=== PATIENT | female | born 1955 | race Caucasian/White ===

== ENCOUNTER 2022-01-18 03:59 | Inpatient (IN) | payer OTHER ==
[2022-01-18 04:09] VITALS: BMI 23.6
[2022-01-18] MEDS ORDERED: ACETAMINOPHEN 500 MG TABLET (FP) PO ONE (04:12)
[2022-01-18] MEDS ORDERED: NITROGLYCERIN SUBLINGUAL 1/150 0.4 MG TAB SL ONE (04:19)
[2022-01-18] MEDS ORDERED: NITROGLYCERIN SUBLINGUAL 1/150 0.4 MG TAB ONE (04:31)
[2022-01-18] MEDS ORDERED: ACETAMINOPHEN 325 MG TABLET (FP) ONE (04:31)
[2022-01-18] MEDS ORDERED: VALSARTAN 40 MG TABLET PO ONE (04:45)
[2022-01-18] MEDS ORDERED: VALSARTAN 80 MG TABLET ONE (04:54)
[2022-01-18] MEDS ORDERED: ACETAMINOPHEN 1000 MG/100 ML BAG IVPB ONE (05:01)
[2022-01-18] MEDS ORDERED: ACETAMINOPHEN INJECTION 100 ML IVPB ONE (05:03)
[2022-01-18 05:09] LABS: BASO % 0.4 % (0-2.0); EOS % 2.6 % (0-4.5); HEMATOCRIT 38.1 % (32.4-45.2); HEMOGLOBIN 12.7 GM/dL (10.7-15.3); LYMPH % 29.4 % (8-40); MCH 29.8 pg (25.7-33.7); MCHC 33.4 g/dl (32.0-36.0); MEAN CELL VOLUME 89.4 fl (80-96); MEAN PLT VOLUME 7.9 fl (7.5-11.1); MONO % 8.8 % (3.8-10.2); NEUT % 58.8 % (42.8-82.8); PLATELET COUNT 321 10^3/uL (134-434); RBC 4.26 M/mm3 (3.60-5.2); RDW 15.1 % (11.6-15.6); WHITE BLOOD COUNT 9.8 K/mm3 (4.0-10.0)
[2022-01-18 05:23] LABS: INR 0.99 (0.83-1.09); PROTHROMBIN TIME (PATIENT) 11.4 SEC (9.7-13.0)
[2022-01-18 05:25] LABS: ACTIVATED PTT 32.4 SECONDS (25.2-36.5)
[2022-01-18] MEDS ORDERED: ASPIRIN 81 MG CHEWABLE TABLETS PO ONE (05:43)
[2022-01-18] MEDS ORDERED: ASPIRIN 81 MG CHEWABLE TABLETS ONE (05:46)
[2022-01-18 05:51] LABS: CHLORIDE 110 mmol/L (98-107); SODIUM 143 mmol/L (136-145)
[2022-01-18 05:54] LABS: ALBUMIN 3.6 g/dl (3.4-5.0); ANION GAP 5 MMOL/L (8-16); BLOOD UREA NITROGEN 19.7 mg/dL (7-18); CALCIUM 8.8 mg/dL (8.5-10.1); CO2 28 mmol/L (21-32); GLUCOSE,RANDOM 117 mg/dL (74-106); LIPASE 244 U/L (73-393)
[2022-01-18 05:57] LABS: CREATININE 0.7 mg/dL (0.55-1.3); SGOT/AST 13 U/L (15-37); SGPT/ALT 18 U/L (13-61)
[2022-01-18 05:58] LABS: BILIRUBIN,TOTAL < 0.1 mg/dL (0.2-1); TOT PROT 6.5 g/dl (6.4-8.2)
[2022-01-18 06:00] LABS: ALK PHOS 78 U/L (45-117)
[2022-01-18 07:33] VITALS: BP 146/78; PULSE 62; TEMP 98.7
[2022-01-18] MEDS ORDERED: METOPROLOL TARTRATE 25 MG TABLET (FP) PO ONE (07:41)
[2022-01-18] MEDS ORDERED: CLOPIDOGREL BISULFATE 300 MG TABLET PO ONE (07:43)
[2022-01-18] MEDS ORDERED: CLOPIDOGREL BISULFATE 300 MG TABLET ONE (07:59)
[2022-01-18] MEDS ORDERED: METOPROLOL TARTRATE 25 MG TABLET (FP) ONE (07:59)
[2022-01-18] MEDS ORDERED: ENOXAPARIN NA (PORCINE) 60 MG/0.6 ML DISP.SYRIN SQ ONE (08:00)
[2022-01-18] MEDS ORDERED: METOPROLOL TARTRATE 25 MG TABLET (FP) PO SCH (22:00)
[2022-01-18] MEDS ORDERED: ROSUVASTATIN CA 20 MG TABLET PO SCH (22:00)
[2022-01-19] MEDS ORDERED: ASPIRIN 81 MG CHEWABLE TABLETS PO SCH (10:00)
[2022-01-19] MEDS ORDERED: CLOPIDOGREL BISULFATE 75 MG TABLET (FP) PO SCH (10:00)
[2022-01-19] MEDS ORDERED: VALSARTAN 40 MG TABLET PO SCH (10:00)
[2022-01-19] MEDS ORDERED: ASPIRIN COATED 81 MG TABLET.EC PO SCH (10:00)
== END 2022-01-18 13:43 | disposition left against medical advice (07) | DRG 190 ==
LOC: JER 03:59 → JERBED 07:35
PROVIDERS: ADMIT Family Medicine; ATTEND Family Medicine
DX: I21.4 Non-ST elevation (NSTEMI) myocardial infarction (principal); I10 Essential (primary) hypertension; J45.909 Unspecified asthma, uncomplicated; Z53.29 Procedure and treatment not carried out because of patient's decision for other reasons; Z91.14 Patient's other noncompliance with medication regimen; Z88.0 Allergy status to penicillin
CPT/HCPCS: 36415; 71045-TC-FY; 80053; 83690; 84484; 85025; 85610; 85730; 93005; 93010; 99285-25; C9803-CS; U0003; U0005

== ENCOUNTER 2024-03-15 18:47 | Emergency (ER) | payer OTHER ==
[2024-03-15 19:00] VITALS: PULSE 84; RESP 18; TEMP 98.4; BMI 23.1
[2024-03-15 19:29] VITALS: BP 176/84
== END 2024-03-15 20:06 | disposition home or self-care (01) ==
LOC: JER 18:47
DX: I10 Essential (primary) hypertension (principal)
CPT/HCPCS: 99283-25